=== PATIENT | female | born 1930 | race Caucasian/White ===

== ENCOUNTER 2016-10-22 04:07 | Emergency (ER) | payer MEDICARE ==
[~2016-10-22] VITALS: Ht 152.4 cm; Wt 53.8 kg
[~2016-10-22 04:07] MED LIST: CALC500T21 PO; IBUP400T20 PO; OMEG600C2 PO; VITA400C28 PO; VITA400C36
[2016-10-22 04:14] VITALS: BP 158/94; PULSE 77; RESP 18; TEMP 98.3; O2SAT 96
[2016-10-22] MEDS ORDERED: PRED50 PO ×2 (04:41→04:43)
[2016-10-22] MEDS ORDERED: FAMC500T PO ×2 (04:41→04:43)
[2016-10-22] MEDS ORDERED: PERC2.5T PO (04:41)
[2016-10-22] MEDS ORDERED: PERC5TAB12 PO (04:43)
[2016-10-22] MEDS ORDERED: predniSONE 20 MG TAB PO ONE (04:45)
[2016-10-22] MEDS ORDERED: oxyCODONE/ACETAMINOPHEN 5 MG/325 MG TAB PO ONE (04:45)
[2016-10-22] MEDS ORDERED: ACYCLOVIR 800 MG TAB PO ONE (04:45)
--- NOTE | 2016-10-22 04:52 | PD ---
HPI Chief Complaint: Skin Problem Time Seen by Provider: 04:26 Travel History International Travel<30 days: No Contact w/Intl Traveler<30days: No Traveled to known affect area: No History of Present Illness HPI The patient is an 86-year-old female that complains of 2 skin rashes. The one on the right side of her back is painful and follows the dermatome in the right mid thoracic region. The one on the left side comes on and off for years and is slightly pruritic. She has had the rash on her right side for 2 days. PFSH Past Medical History Arthritis: No Autoimmune Disease: No Blood Disorders: No Cancer: Yes (skin cancer removed) Cardiovascular Problems: No Chemotherapy: No Diabetes: No Diminished Hearing: No Endocrine: No Gastrointestinal Disorders: No Glaucoma: No Genitourinary: No Hepatitis: No Hiatal Hernia: No Hypertension: No Immune Disorder: No Musculoskeletal: Yes (ARTHROSCOPY SHOWED BONE TOUCHING BONE) Neurologic: No Psychiatric: No Reproductive: No Respiratory: No Radiation Therapy: No Sickle Cell Disease: No Thyroid Disease: No PNEUMOCCOCAL Vaccine (Year): 2005 ?: Not Menopausal: Yes Past Surgical History Abdominal Surgery: No AICD: No Arteriovenous Shunt: No Cardiac Surgery: No Ear Surgery: No Endocrine Surgery: No Eye Surgery: Yes (antonio cataract surgery) Genitourinary Surgery: No Gynecologic Surgery: No Insulin Pump: No Joint Replacement: Yes (PARTIAL R KNEE) Neurologic Surgery: No Oral Surgery: No Pacemaker: No Thoracic Surgery: No Other Surgery: Yes Social History Alcohol Use: Yes (glass of wine per nite) Tobacco Use: No (quit 12 years ago) Substance Use: No Allergies-Medications (Allergen,Severity, Reaction): Coded Allergies: No Known Allergies (Verified , 10/22/16) Reported Meds & Prescriptions Reported Meds & Active Scripts Active Prednisone 50 Mg Tab 50 Mg PO DAILY 5 Days Percocet (Oxycodone-Acetaminophen) 5-325 mg Tab 1 Tab PO Q4H PRN Famciclovir 500 Mg Tab 500 Mg PO TID 10 Days Percocet (Oxycodone-Acetaminophen) 2.5-325 mg Tab 1 Tab PO Q4H PRN Prednisone 50 Mg Tab 50 Mg PO DAILY 5 Days Famciclovir 500 Mg Tab 500 Mg PO TID 10 Days Review of Systems Except as stated in HPI: all other systems reviewed are Neg Physical Exam Narrative GENERAL: The patient is alert, oriented 3 in moderate apparent distress with her painful right skin rash. Her vital signs show blood pressure 158/94 but are otherwise normal. SKIN: Focused skin assessment warm/dry. There is a rash on the mid thoracic region on the right that follows a dermatome and is erythematous, papular and minimally confluent. The rash on the left side is erythematous, papular and non -confluent. HEAD: Atraumatic. Normocephalic. EYES: Pupils equal and round. No scleral icterus. No injection or drainage. ENT: No nasal bleeding or discharge. Mucous membranes pink and moist. NECK: Trachea midline. No JVD. CARDIOVASCULAR: Regular rate and rhythm. No murmur appreciated. RESPIRATORY: No accessory muscle use. Clear to auscultation. Breath sounds equal bilaterally. GASTROINTESTINAL: Abdomen soft, non-tender, nondistended. Hepatic and splenic margins not palpable. MUSCULOSKELETAL: No obvious deformities. No clubbing. No cyanosis. No edema. NEUROLOGICAL: Awake and alert. No obvious cranial nerve deficits. Motor grossly within normal limits. Normal speech. PSYCHIATRIC: Appropriate mood and affect; insight and judgment normal. Data Data Last Documented VS Vital Signs Date Time Temp Pulse Resp B/P Pulse Ox O2 Delivery O2 Flow Rate FiO2 10/22/16 04:14 98.3 77 18 158/94 96 Orders Acyclovir (Zovirax) (10/22/16 04:45) Prednisone (Deltasone) (10/22/16 04:45) Oxycodone-Acetamin 5-325 Mg (Percocet (10/22/16 04:45) MDM Medical Decision Making Medical Screen Exam Complete: Yes Emergency Medical Condition: Yes Medical Record Reviewed: Yes Differential Diagnosis Herpes zoster, allergic reaction, contact dermatitis, viral exanthem Narrative Course The patient has a herpes zoster rash on the right. The left rash, although appearing similar, is not painful and is pruritic and has been on and off for years. Diagnosis Primary Impression: Herpes zoster infection of thoracic region Additional Instructions: The prednisone is taken one tablet daily for 5 days. The Famvir is taken one tablet 3 times a day for 10 days. Do not drink alcohol or drive on the Percocet. This tablet is taken one every 4 hours as needed for pain. Drink plenty of liquids with the Percocet because it can be constipating. Scripts Prednisone 50 Mg Tab50 Mg PO DAILY 5 Days Ref 0 Prov:Fernando Murray MD 10/22/16 Oxycodone-Acetaminophen (Percocet)5-325 mg Tab1 Tab PO Q4H PRN (PAIN) #30 TAB Ref 0 Prov:Fernando Murray MD 10/22/16 Famciclovir 500 Mg [id number] Mg PO TID 10 Days Ref 0 Prov:Fernando Murray MD 10/22/16 Oxycodone-Acetaminophen (Percocet)2.5-325 mg Tab1 Tab PO Q4H PRN (pain) #30 TAB Ref 0 Prov:Fernando Murray MD 10/22/16 Prednisone 50 Mg Tab50 Mg PO DAILY 5 Days Ref 0 Prov:Fernando Murray MD 10/22/16 Famciclovir 500 Mg [id number] Mg PO TID 10 Days Ref 0 Prov:Fernando Murray MD 10/22/16 Disposition: 01 DISCHARGE HOME Condition: Stable Fernando Murray MD Oct 22, 2016 04:52
[2016-10-22 05:14] VITALS: BP 159/88
== END 2016-10-22 05:15 | disposition home or self-care (01) ==
LOC: PHED 04:07
DX: B02.9 Zoster without complications (principal)
CPT/HCPCS: 99283; J7512

== ENCOUNTER 2016-11-15 15:58 | Emergency (ER) | payer MEDICARE ==
[~2016-11-15] VITALS: Ht 160 cm; Wt 52.8 kg
[~2016-11-15 15:58] MED LIST changes: -CALC500T21 PO; +FAMC500T PO; -IBUP400T20 PO; -OMEG600C2 PO; +PERC5TAB12 PO; +PRED50 PO; -VITA400C28 PO; -VITA400C36
[2016-11-15 16:09] VITALS: BP 197/114; PULSE 87; RESP 16; TEMP 97.8; O2SAT 93
[2016-11-15 17:50] VITALS: BP 205/109; PULSE 78; RESP 16; O2SAT 96
--- NOTE | 2016-11-15 17:56 | PD ---
HPI Chief Complaint: Dizziness Time Seen by Provider: 17:50 Travel History International Travel<30 days: No Contact w/Intl Traveler<30days: No Traveled to known affect area: No History of Present Illness HPI PATIENT STATES OVER PAST DAY OR SO, SUDDEN ONSET , ROOM SPINNING, THAT HAS BEEN INTERMITTENT, UNSURE IF MOVING HEAD MAKES IT WORSE. DENIES ANY APONTE/CP/ABDPAIN/ FEVER PFSH Past Medical History Hx Anticoagulant Therapy: No Arthritis: No Autoimmune Disease: No Blood Disorders: No Cancer: Yes (skin cancer removed) Cardiovascular Problems: No Chemotherapy: No Diabetes: No Diminished Hearing: No Endocrine: No Gastrointestinal Disorders: No Glaucoma: No Genitourinary: No Hepatitis: No Hiatal Hernia: No Hypertension: No Immune Disorder: No Musculoskeletal: Yes (ARTHROSCOPY SHOWED BONE TOUCHING BONE) Neurologic: No Psychiatric: No Reproductive: No Respiratory: No Radiation Therapy: No Sickle Cell Disease: No Thyroid Disease: No PNEUMOCCOCAL Vaccine (Year): 2005 ?: Not Menopausal: Yes Past Surgical History Abdominal Surgery: No AICD: No Arteriovenous Shunt: No Cardiac Surgery: No Ear Surgery: No Endocrine Surgery: No Eye Surgery: Yes (antonio cataract surgery) Genitourinary Surgery: No Gynecologic Surgery: No Insulin Pump: No Joint Replacement: Yes (PARTIAL R KNEE) Neurologic Surgery: No Oral Surgery: No Pacemaker: No Thoracic Surgery: No Other Surgery: Yes Social History Alcohol Use: Yes (glass of wine per nite) Tobacco Use: No (quit 12 years ago) Substance Use: No Allergies-Medications (Allergen,Severity, Reaction): Coded Allergies: No Known Allergies (Verified , 10/22/16) Reported Meds & Prescriptions Reported Meds & Active Scripts Active Meclizine (Meclizine HCl) 25 Mg Tab 25 Mg PO TID PRN Reported Once Daily (Multivitamin) 1 Each Tablet 1 Tab PO DAILY [Unknown Eye Drop] 1 Drop EACH EYE BID Timolol Opth Drops 0.5 % Soln 1 Drop EACH EYE DAILY Review of Systems Except as stated in HPI: all other systems reviewed are Neg HENT: Positive: Vertigo Physical Exam Narrative GENERAL: SKIN: Warm and dry. HEAD: Atraumatic. Normocephalic. EYES: Pupils equal and round. No scleral icterus. No injection or drainage. HAS FATIGUABLE LATERAL NYSTAGMUS WITHOUT VERTICAL OR ROTARY COMPONENT...NO LATERALIZING WEAKNESS ENT: No nasal bleeding or discharge. Mucous membranes pink and moist. NECK: Trachea midline. No JVD. CARDIOVASCULAR: Regular rate and rhythm. RESPIRATORY: No accessory muscle use. Clear to auscultation. Breath sounds equal bilaterally. GASTROINTESTINAL: Abdomen soft, non-tender, nondistended. Hepatic and splenic margins not palpable. MUSCULOSKELETAL: Extremities without clubbing, cyanosis, or edema. No obvious deformities. NEUROLOGICAL: Awake and alert. No obvious cranial nerve deficits. Motor grossly within normal limits. Five out of 5 muscle strength in the arms and legs. Normal speech. PSYCHIATRIC: Appropriate mood and affect; insight and judgment normal. Data Data Last Documented VS Vital Signs Date Time Temp Pulse Resp B/P Pulse Ox O2 Delivery O2 Flow Rate FiO2 11/15/16 20:14 74 18 164/87 96 Room Air 11/15/16 16:09 97.8 Orders Clonidine (Catapres) (11/15/16 18:00) Ondansetron Odt (Zofran Odt) (11/15/16 18:00) Meclizine (Antivert) (11/15/16 18:00) Ct Brain W/O Iv Contrast(Rout) (11/15/16 ) Nifedipine Sr (Procardia Xl) (11/15/16 19:00) MDM Medical Decision Making Medical Screen Exam Complete: Yes Emergency Medical Condition: Yes Medical Record Reviewed: Yes Differential Diagnosis CENTRAL V PERIPHERAL VERTIGO V ICH Narrative Course UPON EVALUATION CT DID NOT SHOW ANY ICH OR SINUSITIS, AND CLINCALLY VERTIGO APPEARS TO BE PERIPHERAL, ADVISED F/U WITH ENT WHICH PATIENT STATED SHE ALREADY HAD ONE SO I ADVISED TO FOLLOW UP. Diagnosis Primary Impression: VERTIGO Patient Instructions: General Instructions, Vertigo (ED) Scripts Meclizine 25 Mg Tab25 Mg PO TID PRN (VERTIGO) #21 TAB Ref 0 Prov:Sreedhar Edmond MD 11/15/16 Disposition: 01 DISCHARGE HOME Condition: Stable Sreedhar Edmond MD Nov 15, 2016 17:56
[2016-11-15] MEDS ORDERED: UNKNOWN EYE DROP EACH EYE (17:57)
[2016-11-15] MEDS ORDERED: ONCETAB7 PO (17:57)
[2016-11-15] MEDS ORDERED: TIMO0.5S30 EACH EYE (17:57)
[2016-11-15] MEDS ORDERED: MECLIZINE HCL 25 MG TAB PO ONE (18:00)
[2016-11-15] MEDS ORDERED: ONDANSETRON ODT 4 MG TAB PO ONE (18:00)
[2016-11-15] MEDS ORDERED: cloNIDine HCL 0.2 MG TAB PO ONE (18:00)
[2016-11-15] MEDS ORDERED: MECL-62 PO (18:03)
--- NOTE | 2016-11-15 18:26 | RADRPT ---
EXAM DATE/TIME: 11/15/2016 17:54 [facility] COMPARISON: CT BRAIN W/O CONTRAST, August 02, 2014, 14:40. INDICATIONS : Dizziness. RADIATION DOSE: 57.62 CTDIvol (mGy) MEDICAL HISTORY : None SURGICAL HISTORY : None. ENCOUNTER: Initial ACUITY: 2 days PAIN SCALE: 0/10 LOCATION: cranial TECHNIQUE: Multiple contiguous axial images were obtained of the head. Using automated exposure control and adj ustment of the mA and/or kV according to patient size, radiation dose was kept as low as reasonably a chievable to obtain optimal diagnostic quality images. DICOM format image data is available electro nically for review and comparison. FINDINGS: There is marked central and cortical atrophy with dilatation of ventricular and sulcal spaces. There is no parenchymal hemorrhage, acute infarction or mass lesion identified. There are no extra-axial fluid collections appreciated. The posterior fossa is unremarkable with midline fourth ventricle. T he portion of the orbits and paranasal sinuses visualized are unremarkable. CONCLUSION: Atrophy, otherwise negative for acute process. Rob Dawkins MD FACR on November 15, 2016 at 18:24 Board Certified Radiologist. This report was verified electronically.
[2016-11-15] MEDS ORDERED: NIFEdipine 30 MG SUSTAINED RELEASE TAB PO ONE (19:00)
[2016-11-15 19:16] VITALS: BP 207/89
[2016-11-15 20:14] VITALS: BP 164/87; PULSE 74; RESP 18; O2SAT 96
== END 2016-11-15 20:44 | disposition home or self-care (01) ==
LOC: PHED 15:58
DX: R42 Dizziness and giddiness (principal)
CPT/HCPCS: 70450; 99284

== ENCOUNTER 2016-11-24 11:26 | Emergency (ER) | payer MEDICARE ==
[~2016-11-24] VITALS: Ht 154.9 cm; Wt 53.5 kg
[~2016-11-24 11:26] MED LIST changes: -FAMC500T PO; +MECL-62 PO; +ONCETAB7 PO; -PERC5TAB12 PO; -PRED50 PO; +TIMO0.5S30 EACH EYE; +UNKNOWN EYE DROP EACH EYE
[2016-11-24 11:56] VITALS: BP 218/111; PULSE 76; RESP 18; TEMP 97.7; O2SAT 97
[2016-11-24] MEDS ORDERED: ENALAPRILAT 2.5 MG/2 ML VIAL IV PUSH ONE ×2 (12:15→14:45)
[2016-11-24] MEDS ORDERED: SODIUM CHLORIDE 0.9% FLUSH 10 ML FLUSH IVF PRN (12:15)
[2016-11-24] MEDS ORDERED: MECLIZINE HCL 25 MG TAB PO ONE (12:15)
--- NOTE | 2016-11-24 12:38 | PD ---
HPI Chief Complaint: Hypertension Time Seen by Provider: 11:36 Travel History International Travel<30 days: No Contact w/Intl Traveler<30days: No Traveled to known affect area: No History of Present Illness HPI Patient is a 86-year-old female, poor historian, who presents the emergency department with complaint of high blood pressure and dizziness. Patient states that over the last 2 weeks she has been having episodes of dizziness. She describes this both as a sense of vertigo as though the world is spinning and a sense of lightheadedness. She has not had any chest pain, shortness of breath, palpitations. No tinnitus, change in hearing, ear pain or pressure. She was seen here in our emergency department on the , had a head CT that was negative, felt to be vertigo and given prescription for meclizine. She has been taking this periodically and states that it does help. She presents back to the ER today for repeat symptoms. Notably her blood pressure is elevated, patient denies a history of hypertension. Her blood pressure was elevated on her previous ED visit as well. PFSH Past Medical History Hx Anticoagulant Therapy: No Arthritis: No Autoimmune Disease: No Blood Disorders: No Cancer: Yes (skin cancer removed) Cardiovascular Problems: No Chemotherapy: No Diabetes: No Diminished Hearing: No Endocrine: No Gastrointestinal Disorders: No Glaucoma: No Genitourinary: No Hepatitis: No Hiatal Hernia: No Hypertension: No Immune Disorder: No Musculoskeletal: Yes (ARTHROSCOPY SHOWED BONE TOUCHING BONE) Neurologic: No Psychiatric: No Reproductive: No Respiratory: No Radiation Therapy: No Sickle Cell Disease: No Thyroid Disease: No Tetanus Vaccination: < 5 Years Influenza Vaccination: Yes PNEUMOCCOCAL Vaccine (Year): 2005 ?: Not Menopausal: Yes Past Surgical History Abdominal Surgery: No AICD: No Arteriovenous Shunt: No Cardiac Surgery: No Ear Surgery: No Endocrine Surgery: No Eye Surgery: Yes (antonio cataract surgery) Genitourinary Surgery: No Gynecologic Surgery: No Hysterectomy: Yes (UTERUS REMOVED) Insulin Pump: No Joint Replacement: Yes (PARTIAL R KNEE) Neurologic Surgery: No Oral Surgery: No Pacemaker: No Thoracic Surgery: No Other Surgery: Yes (BLADDER SLING) Social History Alcohol Use: Yes (glass of wine per nite) Tobacco Use: No (quit 39 years ago ) Substance Use: No Allergies-Medications (Allergen,Severity, Reaction): Coded Allergies: No Known Allergies (Verified , 10/22/16) Reported Meds & Prescriptions Reported Meds & Active Scripts Active Lisinopril 20 Mg Tab 20 Mg PO DAILY Review of Systems Except as stated in HPI: all other systems reviewed are Neg Physical Exam Narrative GENERAL: Well-appearing elderly female in no acute distress SKIN: Focused skin assessment warm/dry. HEAD: Atraumatic. Normocephalic. EYES: Pupils equal and round. No scleral icterus. No injection or drainage. Extraocular movements intact without nystagmus ENT: No nasal bleeding or discharge. Mucous membranes pink and moist. Cerumen impaction bilaterally NECK: Supple without bruit CARDIOVASCULAR: Regular rate and rhythm. No murmur appreciated. RESPIRATORY: No accessory muscle use. Clear to auscultation. Breath sounds equal bilaterally. GASTROINTESTINAL: Abdomen soft, non-tender, nondistended. MUSCULOSKELETAL: No obvious deformities. No edema. NEUROLOGICAL: Awake and alert. No obvious cranial nerve deficits. Motor grossly within normal limits. Normal speech. PSYCHIATRIC: Appropriate mood and affect; insight and judgment normal. Data Data Last Documented VS Vital Signs Date Time Temp Pulse Resp B/P Pulse Ox O2 Delivery O2 Flow Rate FiO2 11/24/16 15:04 192/89 11/24/16 14:00 20 11/24/16 12:54 98 11/24/16 11:56 97.7 76 Orders Electrocardiogram (11/24/16 12:05) Prothrombin Time / Inr (Pt) (11/24/16 12:05) Act Partial Throm Time (Ptt) (11/24/16 12:05) Complete Blood Count With Diff (11/24/16 12:05) Basic Metabolic Panel (Bmp) (11/24/16 12:05) Urinalysis - C+S If Indicated (11/24/16 12:05) Ecg Monitoring (11/24/16 12:05) Iv Access Insert/Monitor (11/24/16 12:05) Oximetry (11/24/16 12:05) Sodium Chloride 0.9% Flush (Ns Flush) (11/24/16 12:15) Meclizine (Antivert) (11/24/16 12:15) Ear Irrigation (11/24/16 12:05) Mri Brain W/O Contrast (11/24/16 ) Mra Brain W/O Contrast (Cow) (11/24/16 ) Enalaprilat Inj (Vasotec Inj) (11/24/16 12:15) Enalaprilat Inj (Vasotec Inj) (11/24/16 14:45) Labs Laboratory Tests Test 11/24/16 11/24/16 12:44 13:20 White Blood Count 6.4 TH/MM3 Red Blood Count 5.01 MIL/MM3 Hemoglobin 13.9 GM/DL Hematocrit 42.0 % Mean Corpuscular Volume 83.8 FL Mean Corpuscular Hemoglobin 27.7 PG Mean Corpuscular Hemoglobin 33.0 % Concent Red Cell Distribution Width 13.5 % Platelet Count 227 TH/MM3 Mean Platelet Volume 7.1 FL Neutrophils (%) (Auto) 59.2 % Lymphocytes (%) (Auto) 26.4 % Monocytes (%) (Auto) 7.4 % Eosinophils (%) (Auto) 6.3 % Basophils (%) (Auto) 0.7 % Neutrophils # (Auto) 3.8 TH/MM3 Lymphocytes # (Auto) 1.7 TH/MM3 Monocytes # (Auto) 0.5 TH/MM3 Eosinophils # (Auto) 0.4 TH/MM3 Basophils # (Auto) 0.0 TH/MM3 CBC Comment DIFF FINAL Differential Comment Prothrombin Time 10.6 SEC Prothromb Time International 1.0 RATIO Ratio Activated Partial 25.5 SEC Thromboplast Time Sodium Level 136 MEQ/L Potassium Level 4.0 MEQ/L Chloride Level 102 MEQ/L Carbon Dioxide Level 28.8 MEQ/L Anion Gap 5 MEQ/L Blood Urea Nitrogen 12 MG/DL Creatinine 0.67 MG/DL Estimat Glomerular Filtration 83 ML/MIN Rate Random Glucose 98 MG/DL Calcium Level 8.2 MG/DL Urine Color STRAW Urine Turbidity CLEAR Urine pH 6.5 Urine Specific [place] 1.007 Urine Protein NEG mg/dL Urine Glucose (UA) NEG mg/dL Urine Ketones NEG mg/dL Urine Occult Blood NEG Urine Nitrite NEG Urine Bilirubin NEG Urine Leukocyte Esterase TRACE Urine Squamous Epithelial 0-2 /hpf Cells Urine Transitional Epithelial 0-5 /hpf Cells Microscopic Urinalysis Comment CULT NOT INDICATED MDM Medical Decision Making Medical Screen Exam Complete: Yes Emergency Medical Condition: Yes Medical Record Reviewed: Yes Differential Diagnosis 86-year-old female here with complaint of intermittent lightheadedness/vertigo for the last 2 weeks, associated high blood pressure. Differential includes arrhythmia, electrolyte abnormality, symptomatic anemia, posterior fossa CVA ischemic versus hemorrhagic, posterior fossa mass lesion, vertebrobasilar insufficiency, BPPV, Mnire's, labyrinthitis, accelerated hypertension, hypertensive emergency Narrative Course Patient placed on monitor, IV established and blood obtained. A twelve-lead EKG shows sinus rhythm with sinus arrhythmia but no notable ST or T-wave abnormalities and normal intervals. Patient was given meclizine, IV enalapril with improvement of her symptoms and blood pressure. CBC, BMP, coags unremarkable. Her ears were irrigated needed to remove cerumen impaction, please see procedure note. MRI/MRA of the brain showed small vessel ischemic disease. Procedures Procedure Narrative Water irrigation performed to the bilateral ears to remove cerumen impaction, patient tolerated procedure well. Diagnosis Primary Impression: Peripheral vertigo Qualified Code: H81.399 - Peripheral vertigo, unspecified laterality Additional Impression: Accelerated hypertension Referrals: Primary Care Physician call for appointment Additional Instructions: Continue meclizine as previously prescribed for vertigo, dizziness. Lisinopril as prescribed for blood pressure. You can get this medication free at [facility]. Follow-up with primary care provider for blood pressure recheck and further management. Med/Other Pt SpecificInfo: Prescription(s) given Scripts Lisinopril 20 Mg Tab20 Mg PO DAILY #30 TAB Ref 0 Prov:Caron Haq MD 11/24/16 Disposition: 01 DISCHARGE HOME Condition: Stable Caron Haq MD Nov 24, 2016 12:38 Caron Haq MD Nov 24, 2016 12:38
[2016-11-24 12:52] LABS: AUTOMATED NEUTROPHIL # 3.8 TH/MM3 (1.8-7.7); BASOPHIL % 0.7 % (0.0-2.0); EOSINOPHIL # 0.4 TH/MM3 (0-0.4); EOSINOPHIL % 6.3 % (0.0-4.0); HEMO FLAGS DIFF FINAL; LYMPH % 26.4 % (9.0-44.0); LYMPHOCYTE # 1.7 TH/MM3 (1.0-4.8); MEAN CELL VOLUME 83.8 FL (80.0-100.0); MEAN CORPUSCULAR HEMOGLOBIN 27.7 PG (27.0-34.0); MONO % 7.4 % (0.0-8.0); NEUT % 59.2 % (16.0-70.0); PLATELET COUNT 227 TH/MM3 (150-450); RED BLOOD COUNT 5.01 MIL/MM3 (4.00-5.30); RED CELL DISTRIBUTION WIDTH 13.5 % (11.6-17.2); WHITE BLOOD COUNT 6.4 TH/MM3 (4.0-11.0)
[2016-11-24 12:54] VITALS: O2SAT 98
[2016-11-24 13:08] LABS: BICARBONATE 28.8 MEQ/L (21.0-32.0)
[2016-11-24 13:09] LABS: APTT (PATIENT) 25.5 SEC (24.3-30.1); PROTHROMBIN TIME - PATIENT 10.6 SEC (9.8-11.6)
[2016-11-24 13:30] VITALS: BP 214/98
[2016-11-24 13:32] LABS: BLOOD, URINE NEG (NEG); GLUCOSE,URINE NEG (NEG); KETONE, URINE NEG (NEG); NITRITE,URINE NEG (NEG); PH, URINE 6.5 (5.0-8.5)
[2016-11-24 13:44] LABS: COMMENT (UR) CULT NOT INDICATED; CULTURE IF INDICATED CULT NOT INDICATED; SQUAMOUS EPITHELIAL CELL URINE 0-2 /hpf (0-5); TRANSITIONAL EPI CELLS, URINE 0-5 /hpf; URINE COLOR STRAW (YELLW/STRAW)
[2016-11-24 14:08] VITALS: BP 186/107
[2016-11-24 15:04] VITALS: BP 192/89
--- NOTE | 2016-11-24 15:10 | RADRPT ---
EXAM DATE/TIME: 11/24/2016 14:22 [facility] COMPARISON: CT BRAIN W/O CONTRAST, November 15, 2016, 17:54. INDICATIONS : Vertigo. MEDICAL HISTORY : Hypertension. SURGICAL HISTORY : Hysterectomy. ENCOUNTER: Initial ACUITY: 1 week PAIN SCORE: 0/10 LOCATION: cranial TECHNIQUE: Multiplanar, multisequence MRI of the brain was performed without contrast. FINDINGS: CEREBRUM: The ventricles are normal for age. There is cerebral atrophy. No evidence of midline shift, mass lesi on, hemorrhage or acute infarction. No extraaxial fluid collections are seen. The pituitary gland a nd suprasellar cistern are normal in configuration. WHITE MATTER: Prominent areas of high flair signal abnormalities are seen in the periventricular white matter with similar changes in the brainstem. POSTERIOR FOSSA: The cerebellum is intact. The 4th ventricle is midline. The cerebellopontine angle is unremarkable. The cerebellar tonsils are normal in position. DIFFUSION IMAGING: No focal areas of restricted diffusion are seen. No evidence of acute infarction. EXTRACRANIAL: The visualized portions of the orbits and paranasal sinuses are unremarkable. CONCLUSION: 1. 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 2. No acute infarction. Gera Azar MD on November 24, 2016 at 15:05 Board Certified Radiologist. This report was verified electronically.
[2016-11-24] MEDS ORDERED: LISI-515 PO (15:19)
--- NOTE | 2016-11-24 15:21 | RADRPT ---
EXAM DATE/TIME: 11/24/2016 14:22 [facility] COMPARISON: No previous studies available for comparison. INDICATIONS : Vertigo. MEDICAL HISTORY : Hypertension. SURGICAL HISTORY : Hysterectomy. ENCOUNTER: Initial ACUITY: 1 week PAIN SCORE: 0/10 LOCATION: cranial Please note a normal MRA of the brain does not entirely exclude the possibility of a small aneurysm, nor the possibility of distal intracranial vessel disease. TECHNIQUE: 3D time of flight MRA was performed. Source images, multiplanar STS MIP, and 3D volume MIP reconstru ctions were reviewed. FINDINGS: There is excellent visualization of the major intracranial arteries out to the second-order branch ve ssels. There is no evidence for aneurysm, vessel truncation or stenosis, and no evidence for vascula r malformation. Scattered intraluminal irregularities in the distal branches of the posterior cerebra l arteries, middle cerebral arteries and superior cerebellar arteries. No large vessel stenosis. Ante rior communicating artery not seen. Persistent circulation left posterior cerebral artery. Righ t-sided posterior communicating artery. CONCLUSION: 1. No large vessel stenosis or aneurysm. 2. Atherosclerotic changes. 3. Normal variants as described above. Gera Azar MD on November 24, 2016 at 15:09 Board Certified Radiologist. This report was verified electronically.
[2016-11-24 15:42] VITALS: BP 170/90
--- NOTE | 2016-11-25 12:03 | EKG ---
Date Performed: 11/24/2016 Time Performed: 12:19:39 PTAGE: 86 years EKG: Sinus rhythm WITH SINUS ARRHYTHMIA BORDERLINE LEFT AXIS DEVIATION Since previous tracing, no significant change n oted BORDERLINE ECG PREVIOUS TRACING : 09/17/2009 11.18 DOCTOR: Clifford Caballero Interpretating Date/Time 11/25/2016 12:03:06
== END 2016-11-24 15:45 | disposition home or self-care (01) ==
LOC: PHED 11:26
DX: H81.399 Other peripheral vertigo, unspecified ear (principal); I10 Essential (primary) hypertension; I49.8 Other specified cardiac arrhythmias; Z87.891 Personal history of nicotine dependence
CPT/HCPCS: 70544; 70551; 80048; 81001; 85025; 85610; 85730; 93005; 96374; 96376

== ENCOUNTER 2017-03-29 02:51 | Emergency (ER) | payer MEDICARE ==
[~2017-03-29] VITALS: Ht 152.4 cm; Wt 53.8 kg
[2017-03-29] VITALS (8 sets, daily range): BP systolic 135–200; BP diastolic 81–93; PULSE 65–99; RESP 14–18; TEMP 97.6; O2SAT 94–99
[~2017-03-29 02:51] MED LIST changes: +LISI-515 PO; -MECL-62 PO; -ONCETAB7 PO; -TIMO0.5S30 EACH EYE; -UNKNOWN EYE DROP EACH EYE
--- NOTE | 2017-03-29 03:21 | PD ---
HPI Chief Complaint: Skin Problem Time Seen by Provider: 03:14 Travel History International Travel<30 days: No Contact w/Intl Traveler<30days: No Traveled to known affect area: No History of Present Illness HPI The patient is an 86-year-old female that complains of a skin rash on her arms and around her neck and upper trunk for 5 days. She has not started any new medications and never had this rash before. She denies any shortness of breath or wheezing. She has no known allergies. She denies any fever, cough, chest pain, shortness of breath, nausea, vomiting or diarrhea. She denies any history of heart disease. PFSH Past Medical History Hx Anticoagulant Therapy: No Arthritis: No Autoimmune Disease: No Blood Disorders: No Cancer: Yes (skin cancer removed) Cardiovascular Problems: No Chemotherapy: No Diabetes: No Diminished Hearing: No Endocrine: No Gastrointestinal Disorders: No Glaucoma: No Genitourinary: No Hepatitis: No Hiatal Hernia: No Hypertension: No Immune Disorder: No Musculoskeletal: Yes (ARTHROSCOPY SHOWED BONE TOUCHING BONE) Neurologic: No Psychiatric: No Reproductive: No Respiratory: No Radiation Therapy: No Sickle Cell Disease: No Thyroid Disease: No PNEUMOCCOCAL Vaccine (Year): 2005 Menopausal: Yes Past Surgical History Abdominal Surgery: No AICD: No Arteriovenous Shunt: No Cardiac Surgery: No Ear Surgery: No Endocrine Surgery: No Eye Surgery: Yes (antonio cataract surgery) Genitourinary Surgery: No Gynecologic Surgery: No Hysterectomy: Yes (UTERUS REMOVED) Insulin Pump: No Joint Replacement: Yes (PARTIAL R KNEE) Neurologic Surgery: No Oral Surgery: No Pacemaker: No Thoracic Surgery: No Other Surgery: Yes (BLADDER SLING) Social History Alcohol Use: Yes (glass of wine per nite) Tobacco Use: No (quit 39 years ago ) Substance Use: No Allergies-Medications (Allergen,Severity, Reaction): Coded Allergies: No Known Allergies (Verified , 10/22/16) Reported Meds & Prescriptions Reported Meds & Active Scripts Active Lisinopril 20 Mg Tab 20 Mg PO DAILY Review of Systems Except as stated in HPI: all other systems reviewed are Neg Physical Exam Narrative GENERAL: Well-nourished, well-developed patient in slight apparent distress with her pruritic skin rash area her vital signs show blood pressure 200/93 but are otherwise normal. SKIN: Focused skin assessment warm/dry. There is an erythematous and slightly papular skin rash covering her arms, upper trunk and most heavily around the neck. The legs and lower back are mostly spared. HEAD: Normocephalic. EYES: No scleral icterus. No injection or drainage. NECK: Supple, trachea midline. No JVD or lymphadenopathy. CARDIOVASCULAR: Regular rate and rhythm without murmurs, gallops, or rubs. RESPIRATORY: Breath sounds equal bilaterally. No accessory muscle use. Lungs clear to auscultation bilaterally. GASTROINTESTINAL: Abdomen soft, non-tender, nondistended. MUSCULOSKELETAL: No cyanosis, or edema. BACK: Nontender without obvious deformity. No CVA tenderness. Data Data Last Documented VS Vital Signs Date Time Temp Pulse Resp B/P (MAP) Pulse Ox O2 Delivery O2 Flow Rate FiO2 03/29/17 03:39 108 193/89 03/29/17 02:57 97.6 16 99 Orders Orders Ecg Monitoring (03/29/17 03:22) Iv Access Insert/Monitor (03/29/17 03:22) Oximetry (03/29/17 03:22) Diphenhydramine Inj (Benadryl Inj) (03/29/17 03:30) Methylprednisolone So Succ Inj (Solumedr (03/29/17 03:30) Sodium Chlor 0.9% 1000 Ml Inj (Ns 1000 M (03/29/17 03:22) Sodium Chloride 0.9% Flush (Ns Flush) (03/29/17 03:30) Epinephrine (1:1000) Inj (Adrenalin (1:1 (03/29/17 03:30) MDM Medical Decision Making Medical Screen Exam Complete: Yes Emergency Medical Condition: Yes Medical Record Reviewed: Yes Differential Diagnosis Allergic rash, eczema, viral rash Narrative Course It is now 0350 and the patient's rash has decreased dramatically. Impression: Allergic rash Plan: The patient be given Zantac, Benadryl and a tapered course of prednisone. She is to follow-up with her primary care physician next week. Diagnosis Primary Impression: Rash due to allergy Additional Instructions: The prednisone is taken one tablet twice daily for 4 days followed by one tablet once daily for 4 days. The Zantac is taken one tablet twice daily and the Benadryl is taken one tablet twice daily. Follow-up next week with your primary care physician. Med/Other Pt SpecificInfo: Prescription(s) given Scripts Prednisone (Prednisone) 50 Mg Tab 50 MG PO BID for X 4 days than daily X 4 days, #12 TAB 0 Refills Prov: Fernando Murray MD 03/29/17 Diphenhydramine (Diphenhydramine) 25 Mg Cap 25 MG PO Q12H Y for ALLERGIES, #60 CAP 0 Refills Prov: Fernando Murray MD 03/29/17 Ranitidine (Zantac) 150 Mg Tab 150 MG PO BID for Reduce Stomach Acid, #60 TAB 0 Refills Prov: Fernando Murray MD 03/29/17 Disposition: 01 DISCHARGE HOME Condition: Stable Fernando Murray MD Mar 29, 2017 03:21
[2017-03-29] MEDS ORDERED: SODIUM CHLOR 0.9% 1000 ML INJ 1,000 ML IV SCH (03:22)
[2017-03-29] MEDS ORDERED: EPINEPHrine HCL (1:1000) 1 MG/ML VIAL IM ONE (03:30)
[2017-03-29] MEDS ORDERED: methylPREDNISolone SOD SUCC 125 MG/2 ML VIAL IM ONE (03:30)
[2017-03-29] MEDS ORDERED: SODIUM CHLORIDE 0.9% FLUSH 10 ML FLUSH IV FLUSH PRN ×2 (03:30→04:00)
[2017-03-29] MEDS ORDERED: diphenhydrAMINE HCL 50 MG/ML VIAL IVP ONE (03:30)
[2017-03-29] MEDS ORDERED: ZANT150T2 PO (03:54)
[2017-03-29] MEDS ORDERED: DIPH25CA PO (03:54)
[2017-03-29] MEDS ORDERED: PRED50 PO (03:54)
[2017-03-29] MEDS ORDERED: FAMOTIDINE 20 MG/2 ML VIAL IV PUSH ONE (04:00)
== END 2017-03-29 05:10 | disposition home or self-care (01) ==
LOC: PHED 02:51
DX: T78.40XA Allergy, unspecified, initial encounter (principal)
CPT/HCPCS: 96361; 96372; 96374; 96375; 99284; J0171; J1200; J2930; J7030

== ENCOUNTER 2017-11-22 17:20 | Observation (INO) ==
--- NOTE | 2017-11-22 18:40 | ED ---
HPI General Chief complaint: Dizziness Stated complaint: DIZZY/HIGH BP Time Seen by Provider: 11/22/17 18:26 Source: patient Mode of arrival: ambulatory Limitations: no limitations History of Present Illness HPI narrative: 87yo F with PMH of macular degeneration, HTN presents to the ED with c/o feeling lightheaded and mildly nauseous about 1-2 hours ago. Said she check her blood pressure and it was 180s/90s and she got scare. Said she takes her blood pressure medication daily but does not know what it was but took it. Said she has mild headaches all the time and right now is not really having headache and does not want any pain medication. Denies any fever, chest pain, sob, vomiting, abdominal pain, focal weakness or numbness. Pt does feel like she has increased urinary frequency. Related Data Home Medications Medication Instructions Recorded Confirmed Unable to Obtain Home Meds 11/22/17 11/22/17 Allergies Allergy/AdvReac Type Severity Reaction Status Date / Time No Known Allergies Allergy Verified 11/22/17 17:27 Review of Systems ROS Unobtainable All other systems reviewed negative except as stated in HPI [facility] Medical History Medical History Hypertension (Acute) Surgical History Surgical History No history of previous surgery (Acute) Social History Social History Substance History: No History of Abuse Second Hand Smoke Exposure: No Smoking Status: Former smoker Tobacco Type: Cigarettes How Often Do You Have a Drink Containing Alcohol: 4 or more times a week Recent Travel in [facility] within the Last 8 Weeks: No Recent Out of Country Travel within the Last 8 Weeks: No Immunization History Tetanus Immunization: Unsure Hx Influenza Vaccine This Season: Yes Exam Narrative Exam Narrative: GENERAL: 87yo F not in distress. SKIN: Focused skin assessment warm/dry. HEAD: Atraumatic. Normocephalic. EYES: Pupils equal and round at 3mm bilaterally. EOMI. ENT: No nasal bleeding or discharge. Mucous membranes pink and moist. NECK: Trachea midline. No JVD. CARDIOVASCULAR: Regular rate and rhythm. No murmur appreciated. RESPIRATORY: No accessory muscle use. Clear to auscultation. Breath sounds equal bilaterally. GASTROINTESTINAL: Abdomen soft, non-tender, nondistended. MUSCULOSKELETAL: No obvious deformities. No clubbing. No cyanosis. No edema. NEUROLOGICAL: Awake and alert. No obvious cranial nerve deficits. Motor grossly within normal limits in all extremities. Sensation intact. Normal speech. PSYCHIATRIC: Appropriate mood and affect; insight and judgment normal. Course Initial Documented Vital Signs Temperature 97.7 F 11/22/17 17:27 Pulse Rate 68 11/22/17 17:27 Respiratory Rate 16 11/22/17 17:27 Blood Pressure 195/100 H 18 17:27 Pulse Oximetry 96 11/22/17 17:27 Last Documented Vital Signs Temperature 97.7 F 11/22/17 17:27 Pulse Rate 64 11/22/17 19:14 Respiratory Rate 18 11/22/17 19:14 Blood Pressure 165/87 H 11/22/17 19:14 Pulse Oximetry 97 11/22/17 19:14 Sign Out Sign Out Data: Patient Sign Out occurred on 11/22/17 at 19:19. Patient's care was discussed, and care was transferred from Diane Francois DO to Ila Simpson. Sign Out Comment: Sign out to next team to follow up labs and reevaluate Last updated by Diane Francois DO at 11/22/17 19:08 Post-Handoff Eval: much better at this timePatient signed out to me by Dr. Francois at change of shift. Patient pending lab work and re-evaluation Patient is an 87-year-old female who presents to the emergency room with complaints of lightheadedness and high blood pressure. Patient reports that she was feeling lightheaded and dizzy earlier today and took her blood pressure and it was higher than normal. Reports that she became scared and came to the ER for evaluation. Patient denies any chest pain or shortness of breath, patient reports near resolution of her lightheadedness at this time. Denies any vision changes. Patient with no fever or chills, no nausea or vomiting. Patient requesting to be discharged to home as she is feeling much better at this time. CBC: wnl BMP: Sodium 135, potassium 3.8, magnesium 1.9, creatinine 0.91 Troponin UA positive for moderate white blood cell clumps, innumerable white blood cells , positive nitrites, 15 ketones - patient was given a dose of antibiotics for treatment of uti - uc sent EKG is concerning as she does have new st seg depressions which is a change from previous ekg's (11/23/16). First set of troponins is negative Discussed with patient need for admission to the hospital due to her abnormal EKG. Ischemic EKG could be secondary to hypertensive urgency and his blood pressure was "REALLY HIGH" prior to coming to the ER. Initial bp here was 195/ 100, she has not received any antihypertensive medications, her bp now 165/87 Patient is agreeable to admission. Case reviewed with Dr. Leal who accepts pt to service Medical Decision Making MDM Narrative Medical decision making narrative: 87yo F with HTN here with dizziness and nausea that just started. Also with increased urinary frequency. UA showed positive nitrite. Pt given ceftriaxone. EKG was obtained for dizziness and showed significant ST depression that are new. Even though pt is not having any chest pain or sob, will obtain troponin base on EKG changes. Sign out to next team to follow up and reevaluate. Differential Diagnosis Differential Diagnosis: UTI vs. dehydration vs. electrolyte abnormality vs. ACS Lab Data Lab results reviewed: Yes I reviewed the patient's lab results. Result diagrams: 11/22/17 19:00 11/22/17 19:00 Lab Results 11/22/17 11/22/17 11/22/17 Range/Units 18:45 19:00 19:00 CBC w Diff Auto diff final WBC 7.5 (4.0-11.0) th/mm3 RBC 4.69 (4.00-5.30) mil/mm3 Hgb 13.7 (11.6-15.3) gm/dL Hct 41.2 (35.0-46.0) % MCV 87.9 (80.0-100.0) fL MCH 29.2 (27.0-34.0) pg MCHC 33.2 (32.0-36.0) % RDW 13.3 (11.6-17.2) % Plt Count 185 (150-450) th/mm3 MPV 7.5 (7.0-11.0) fL Neut % (Auto) 69.1 (16.0-70.0) % Lymph % (Auto) 21.6 (9.0-44.0) % [place] % (Auto) 7.2 (0.0-8.0) % Eos % (Auto) 1.6 (0.0-4.0) % Baso % (Auto) 0.5 (0.0-2.0) % Neut # (Auto) 5.3 (1.8-7.7) th/mm3 Lymph # (Auto) 1.6 (1.0-4.8) th/mm3 [place] # (Auto) 0.5 (0.0-0.9) th/mm3 Eos # (Auto) 0.1 (0.0-0.4) th/mm3 Baso # (Auto) 0.0 (0.0-0.2) th/mm3 WBC Differential . Differential Comment . Sodium 135 L (136-145) meq/L Potassium 3.8 (3.5-5.1) meq/L Chloride 100 (98-107) meq/L Carbon Dioxide 28.8 (21.0-32.0) meq/L Anion Gap 6 (5-15) meq/L BUN 20 H (7-18) mg/dL Creatinine 0.91 (0.50-1.00) mg/dL Estimated GFR 58 L (>89) mL/min Random Glucose 115 H (74-106) mg/dL Calcium 9.0 (8.5-10.1) mg/dL Magnesium 1.9 (1.5-2.5) mg/dL Troponin I Less than 0.02 L (0.02-0.05) ng/mL Urine Color Yellow (Yellw/Straw) Urine Clarity Cloudy H (Clear) Urine pH 5.5 (5.0-8.5) Ur Specific [place] 1.020 (1.002-1.035) Urine Protein Negative (Neg-Trace) mg/dL Urine Glucose (UA) Negative (Negative) mg/dL Urine Ketones 15 H (Negative) mg/dL Urine Occult Blood Small H (Negative) Urine Nitrate Positive H (Negative) Urine Bilirubin Negative (Negative) Urine Urobilinogen 0.2 (Less than 2) mg/dL Ur Leukocyte Esterase Small H (Negative) Urine RBC 4-15 H (0-3) /hpf Urine WBC Innumerable H (0-5) /hpf Urine WBC Clumps Moderate H (None) Ur Squamous Epith Cells Greater than 10 H (0-5) /hpf Ur Renal Epithelial Cell 1-5 H (None) /hpf Amorphous Sediment Few H (None) /hpf Urine Bacteria Many H (None) /hpf Urine Mucus Few H (Occasional) /lpf Micro UA Comment Culture indicated Imaging Data Attestation: I personally reviewed and interpreted this imaging study as follows : ECG Data EKG Prior to Arrival: No Attestation: I personally reviewed and interpreted this ECG as follows: Interpretation: NSR 65bpm. Normal axis. ST depression in III, aVF, V5, V6 are new compare to 11/2016. Discharge Plan Discharge Disposition Patient Disposition: 30 Still Patient Discharge Condition Condition: Fair Physicians Team ED Provider: Ila Simpson Primary Care Provider: Eric Caba Rxs /Orders / Referrals /Forms Prescriptions: No Action Unable to Obtain Home Meds RF: 0 Status ED Status: With Doctor
[2017-11-22 18:49] LABS: Bilirubin,Urine Negative (Negative); Clarity,Urine Cloudy (Clear); Color,Urine Yellow (Yellw/Straw); Glucose,Urine (UA) Negative (Negative); Leukocyte Esterase,Urine Small (Negative); Nitrite,Urine Positive (Negative); PH,Urine 5.5 (5.0-8.5); Urobilinogen,Urine 0.2 mg/dL (Less than 2)
[2017-11-22 18:55] LABS: WBC,Urine Innumerable /hpf (0-5)
[2017-11-22 18:56] LABS: Amorphous Sediment,Urine Few /hpf; Bacteria,Urine Many /hpf; Mucus,Urine Few /lpf (Occasional); Squamous Epithelial Cell,Urine Greater than 10 /hpf (0-5)
[2017-11-22 19:13] LABS: Baso % (Auto) 0.5 % (0.0-2.0); Eos # (Auto) 0.1 th/mm3 (0.0-0.4); Eos % (Auto) 1.6 % (0.0-4.0); Hematocrit 41.2 % (35.0-46.0); Hemoglobin 13.7 gm/dL (11.6-15.3); Lymph # (Auto) 1.6 th/mm3 (1.0-4.8); Lymph % (Auto) 21.6 % (9.0-44.0); Mean Corpuscular HGB Conc 33.2 % (32.0-36.0); Mean Corpuscular Hemoglobin 29.2 pg (27.0-34.0); Mean Corpuscular Volume 87.9 fL (80.0-100.0); Mean Platelet Volume 7.5 fL (7.0-11.0); Mono # (Auto) 0.5 th/mm3 (0.0-0.9); Mono % (Auto) 7.2 % (0.0-8.0); Neut # (Auto) 5.3 th/mm3 (1.8-7.7); Neut % (Auto) 69.1 % (16.0-70.0); Platelet Count 185 th/mm3 (150-450); Red Blood Count 4.69 mil/mm3 (4.00-5.30); Red Cell Distribution Width 13.3 % (11.6-17.2); White Blood Count 7.5 th/mm3 (4.0-11.0)
[2017-11-22 19:21] LABS: Chloride 100 meq/L (98-107); Potassium 3.8 meq/L (3.5-5.1); Sodium 135 meq/L (136-145)
[2017-11-22 19:25] LABS: Anion Gap 6 meq/L (5-15); Blood Urea Nitrogen 20 mg/dL (7-18); Carbon Dioxide 28.8 meq/L (21.0-32.0); Glucose,Random 115 mg/dL (74-106); Magnesium 1.9 mg/dL (1.5-2.5)
[2017-11-22 19:28] LABS: Glomerular Filtration Rate 58 mL/min (>89)
[2017-11-22] MEDS ORDERED: Bisacodyl 10 MG Supp RECTAL PRN (20:01)
[2017-11-22] MEDS ORDERED: Temazepam 15 MG Capsule PO PRN (20:01)
[2017-11-22] MEDS: Sod Chloride 0.9% Inj 1,000 ML IV.CONT SCH (20:50)
[2017-11-22] MEDS: Senna/Docusate Sodium 8.6/50 MG Tablet PO SCH (21:13)
[2017-11-23 05:04] LABS: Baso % (Auto) 0.5 % (0.0-2.0); Eos # (Auto) 0.1 th/mm3 (0.0-0.4); Eos % (Auto) 2.1 % (0.0-4.0); Hematocrit 39.3 % (35.0-46.0); Hemoglobin 13.3 gm/dL (11.6-15.3); Lymph # (Auto) 1.2 th/mm3 (1.0-4.8); Mean Corpuscular HGB Conc 33.8 % (32.0-36.0); Mean Corpuscular Hemoglobin 29.5 pg (27.0-34.0); Mean Corpuscular Volume 87.2 fL (80.0-100.0); Mean Platelet Volume 7.4 fL (7.0-11.0); Mono # (Auto) 0.5 th/mm3 (0.0-0.9); Mono % (Auto) 8.7 % (0.0-8.0); Neut # (Auto) 3.5 th/mm3 (1.8-7.7); Neut % (Auto) 65.7 % (16.0-70.0); Platelet Count 163 th/mm3 (150-450); Red Blood Count 4.51 mil/mm3 (4.00-5.30); Red Cell Distribution Width 13.2 % (11.6-17.2); White Blood Count 5.4 th/mm3 (4.0-11.0)
[2017-11-23 05:10] LABS: Chloride 103 meq/L (98-107); Potassium 4.1 meq/L (3.5-5.1); Sodium 137 meq/L (136-145)
[2017-11-23 06:08] LABS: Alanine Aminotransferase 18 U/L (10-53); Albumin 3.1 g/dL (3.4-5.0); Alkaline Phosphatase 41 U/L (45-117); Anion Gap 5 meq/L (5-15); Aspartate Aminotransferase 20 U/L (15-37); Blood Urea Nitrogen 17 mg/dL (7-18); Glomerular Filtration Rate 86 mL/min (>89); Glucose,Random 98 mg/dL (74-106); Total Protein 6.4 g/dL (6.4-8.2)
--- NOTE | 2017-11-23 10:23 | ECG ---
Date Performed: 11/22/2017 Time Performed: 18:46:38 PTAGE: 87 years EKG: Sinus rhythm POSSIBLE LEFT ATRIAL ENLARGEMENT NONSPECIFIC ST & T-WAVE ABNORMALITY BORDERLINE ECG PREVIOUS TRACING : 11/24/2016 12.19 Since the previous tracing, no significant change noted DOCTOR: Elsa Irizarry Interpretating Date/Time 11/23/2017 10:22:05
[2017-11-23] MEDS: Senna/Docusate Sodium 8.6/50 MG Tablet PO SCH ×2 (10:30→20:25)
[2017-11-23] MEDS ORDERED: Lisinopril 10 MG Tablet PO SCH (11:45)
--- NOTE | 2017-11-23 17:10 | P.HP ---
History of Present Illness Primary Care Physician: Eric Caba MD History of Present Illness: This is an 87-year-old female in good health for her age who has a past medical history of hypertension. On routine home blood pressure check yesterday evening her machine registered with a systolic blood pressure of above 200. She denies any symptoms from this, denies dizziness, denies headache, denies shortness of breath. She was concerned with the finding and decided to bring herself into the ER. On admission she was found to have systolic blood pressure in the range of 200 was admitted to address the blood pressure. EKG revealed some borderline changes with left axis deviation. She was also incidentally found to have a urinary tract infection which she also has no symptoms from. She reports a very active exercise regimen, has a stationary bike which he uses daily, also has a walker which he does not use. Review of Systems Constitutional: Denies anorexia, Denies body ache(s), Denies chills, Denies daytime sleepiness, Denies excessive sweating, Denies fatigue, Denies fever(s), Denies headache(s), Denies increased appetite, Denies lack of energy, Denies malaise, Denies night sweats, Denies weakness, Denies weight gain, Denies weight loss, Denies other Ears, Nose, Mouth, and Throat: Denies abnormal hearing, Denies bleeding gums, Denies bad breath, Denies change in voice, Denies dental pain, Denies difficulty swallowing, Denies dizziness, Denies dry mouth, Denies ear discharge , Denies ear pain, Denies facial pain, Denies headache(s), Denies hearing loss, Denies hoarseness, Denies lip swelling, Denies nosebleed, Denies mouth lesions, Denies mouth pain, Denies nasal congestion, Denies nasal discharge, Denies nasal obstruction, Denies nasal trauma, Denies neck lump, Denies neck pain, Denies nose pain, Denies pain with swallowing, Denies poor balance, Denies post nasal drip, Denies ringing in the ears, Denies sinus pain, Denies sinus pressure , Denies sore throat, Denies throat swelling, Denies tongue swelling, Denies other Cardiovascular: Denies chest pain, Denies chest pain at rest, Denies chest pain with activity, Denies excessive sweating, Denies fainting, Denies fast heart rate, Denies foot swelling, Denies generalized swelling, Denies irregular heart rhythm, Denies leg pain with activity, Denies leg sores, Denies leg swelling, Denies lightheadedness, Denies radiating jaw, neck or arm pain, Denies rapid, pounding, or irregular heartbeat, Denies shortness of breath, Denies shortness of breath with activity, Denies shortness of breath when lying down, Denies shortness of breath causing sudden awakening, Denies slow heart rate, Denies other Respiratory: Denies change in phlegm color, Denies chest congestion, Denies cough, Denies coughing up blood, Denies excessive phlegm production, Denies pain on inspiration, Denies pain with cough, Denies shortness of breath, Denies shortness of breath with activity, Denies snoring, Denies stridor, Denies wheezing, Denies other Gastrointestinal: Denies abdominal pain, Denies belching, Denies black, tarry stools, Denies bloating, Denies bright, red blood in stools, Denies change in bowel habits, Denies constant urge to pass stool, Denies change in stools, Denies coffee ground vomit, Denies constipation, Denies cramping, Denies difficulty swallowing, Denies excessive passing of gas, Denies feeling full early, Denies heartburn, Denies incontinent of stools, Denies loose stools, Denies nausea, Denies pain with swallowing, Denies vomiting, Denies vomiting blood, Denies other Genitourinary: Denies abnormal periods, Denies abnormal vaginal bleeding, Denies absent period, Denies bleeding between periods, Denies blood in urine, Denies difficulty starting urination, Denies difficulty urinating, Denies dribbling after urination, Denies frequent nighttime urination, Denies genital itching, Denies genital lesions, Denies heavy periods, Denies hot flashes, Denies light periods, Denies nipple discharge, Denies painful intercourse, Denies painful periods, Denies painful urination, Denies pelvic pain, Denies prolapse symptoms, Denies sexual problems, Denies side pain, Denies urinary incontinence, Denies urinary urgency, Denies vaginal discharge, Denies vaginal dryness, Denies vaginal odor, Denies vaginal itching, Denies other Musculoskeletal: Denies abnormal walking, Denies back pain, Denies body aches, Denies decreased muscle mass, Denies deformity, Denies joint pain, Denies joint swelling, Denies limited joint movement, Denies loss of height, Denies muscle cramps, Denies muscle weakness, Denies neck pain, Denies numbness, Denies radiating pain into limb, Denies stiffness, Denies tingling, Denies other Neurologic: Denies abnormal hearing, Denies abnormal movements, Denies abnormal speech, Denies abnormal walking, Denies behavioral changes, Denies burning sensations, Denies confusion, Denies dizziness, Denies fainting, Denies frequent falls, Denies headache(s), Denies lack of coordination, Denies localized weakness, Denies loss of vision, Denies memory loss, Denies numbness, Denies other visual disturbances, Denies radiating pain, Denies restless legs, Denies convulsions, Denies seizure-like activity, Denies sensory deficit, Denies tingling, Denies tingling/numbness/burning sensations, Denies tremor(s), Denies unsteadiness, Denies weakness, Denies other PMFSH - History History Provided By: Patient - Medical History Medical History: Medical History (Last Updated 11/22/17 @ 18:28 by Elza Hooper RN) Hypertension - Surgical History Surgical History: Surgical History (Last Updated 11/22/17 @ 18:28 by Elza Hooper RN) No history of previous surgery - Tobacco History Second Hand Smoke Exposure: No Tobacco Use In Past 30 Days: No Smoking Status: Former smoker Tobacco Type: Cigarettes - Alcohol History How Often Do You Have a Drink Containing Alcohol: 4 or more times a week - Substance Use History Substance History: No History of Abuse - Travel History Recent Travel in the [facility] Within the Last 8 Weeks: No Recent Travel Out of the Country Within the Last 8 Weeks: No - Immunization History Tetanus Immunization: Unsure Hx Influenza Vaccine This Season: Yes Medications and Allergies Active Medications: Active Medications Hydrocodone Bitart/Acetaminophen ([place] 5/325) 1 tab PO Q4H PRN PRN Reason: PAIN 3-5 Last Admin: 11/23/17 11:04 Dose: 1 tab Hydrocodone Bitart/Acetaminophen ([place] 10/325) 1 tab PO Q4H PRN PRN Reason: PAIN 6-10 Al Hydroxide/Mg Hydroxide (Milk Of Magnesia Liq) 30 ml PO Q12H PRN PRN Reason: Mild Constipation Bisacodyl (Dulcolax Supp) 10 mg RECTAL DAILY PRN PRN Reason: SEVERE CONSITIPATION Clonidine HCl (Catapres) 0.1 mg PO Q6H PRN PRN Reason: HYPERTENSION Last Admin: 11/23/17 11:47 Dose: 0.1 mg Ceftriaxone Sodium 1,000 mg/ (Sodium Chloride) 100 mls @ 200 mls/hr IV.SIG Q24H KIMBERLY Lactulose (Lactulose Liq) 30 ml PO DAILY PRN PRN Reason: SEVERE CONSITIPATION Lisinopril (Prinivil) 10 mg PO DAILY KIMBERLY Last Admin: 11/23/17 13:06 Dose: 10 mg Metoclopramide HCl (Reglan Inj) 5 mg IV.PUSH Q6HR PRN; Protocol PRN Reason: NAUSEA OR VOMITING Last Admin: 11/23/17 11:08 Dose: 5 mg Non-Formulary Medication (Lisinopril) 40 mg PO DAILY [facility] Non-Formulary Medication (Atenolol) 25 mg PO DAILY [facility] Senna/Docusate Sodium (Hyun-Colace) 1 tab PO BID KIMBERLY Last Admin: 11/23/17 10:30 Dose: Not Given Sennosides (Senokot) 17.2 mg PO Q12H PRN PRN Reason: Moderate Constipation Temazepam (Restoril) 15 mg PO HS PRN PRN Reason: INSOMNIA Allergies Allergy/AdvReac Type Severity Reaction Status Date / Time No Known Allergies Allergy Verified 11/22/17 17:27 Home Medications Medication Instructions Recorded Confirmed Type atenolol DAILY 11/23/17 History lisinopril DAILY 11/23/17 History Exam Vital signs: Vital Signs 11/22/17 17:27 11/22/17 18:28 11/22/17 19:14 Temperature 97.7 F Pulse Rate 68 66 64 Respiratory Rate 16 16 18 Blood Pressure 195/100 H 173/93 H 165/87 H Pulse Oximetry 96 94 L 97 11/22/17 20:51 11/22/17 23:20 11/23/17 00:00 Temperature 97.9 F 97.8 F Pulse Rate 61 70 64 Respiratory Rate 16 24 23 Blood Pressure 166/80 H 150/78 H 179/81 H Pulse Oximetry 94 L 11/23/17 02:00 11/23/17 04:00 11/23/17 08:00 Temperature 98 F 97.2 F L Pulse Rate 66 62 88 Respiratory Rate 17 17 Blood Pressure 150/81 H Pulse Oximetry 11/23/17 12:00 11/23/17 13:45 11/23/17 16:00 Temperature 98.6 F Pulse Rate Respiratory Rate 19 Blood Pressure 176/84 H Pulse Oximetry Intake & Output 11/22/17 11/23/17 11/23/17 18:59 06:59 18:59 Intake Total 220 / 220 720 / 720 Output Total 250 / 250 500 / 500 Balance -30 / -30 220 / 220 Weight 52 kg 46.2 kg Intake: IV 100 / 100 Rocephin Inj 1,000 MG In NS Inj 100 / 100 100 ML @ 200 mls/hr IV.SIG ONCE ONE Rx#:[id number] Oral 120 / 120 720 / 720 Output: Urine 250 / 250 500 / 500 Other: Weight On Admission 46.2 kg Narrative: GENERAL: Alert and oriented 3 with some memory deficits with things like medication names and dosing, appears younger than stated age, fit SKIN: Warm and dry. HEAD: Atraumatic. Normocephalic. EYES: Pupils equal and round. No scleral icterus. No injection or drainage. ENT: No nasal bleeding or discharge. Mucous membranes pink and moist. NECK: Trachea midline. No JVD. CARDIOVASCULAR: Regular rate and rhythm. RESPIRATORY: No accessory muscle use. Clear to auscultation. Breath sounds equal bilaterally. GASTROINTESTINAL: Abdomen soft, non-tender, nondistended. Hepatic and splenic margins not palpable. MUSCULOSKELETAL: Extremities without clubbing, cyanosis, or edema. No obvious deformities. NEUROLOGICAL: Awake and alert. No obvious cranial nerve deficits. Motor grossly within normal limits. Five out of 5 muscle strength in the arms and legs. Normal speech. PSYCHIATRIC: Appropriate mood and affect; insight and judgment normal. Results - Labs CBC & Chem 7: 11/23/17 04:45 11/23/17 04:55 Labs: Laboratory Results - last 24 hr 11/22/17 11/22/17 11/22/17 18:45 19:00 19:00 CBC w Diff Auto diff final WBC 7.5 RBC 4.69 Hgb 13.7 Hct 41.2 MCV 87.9 MCH 29.2 MCHC 33.2 RDW 13.3 Plt Count 185 MPV 7.5 Neut % (Auto) 69.1 Lymph % (Auto) 21.6 [place] % (Auto) 7.2 Eos % (Auto) 1.6 Baso % (Auto) 0.5 Neut # (Auto) 5.3 Lymph # (Auto) 1.6 [place] # (Auto) 0.5 Eos # (Auto) 0.1 Baso # (Auto) 0.0 WBC Differential . Differential Comment . Sodium 135 L Potassium 3.8 Chloride 100 Carbon Dioxide 28.8 Anion Gap 6 BUN 20 H Creatinine 0.91 Estimated GFR 58 L Random Glucose 115 H Calcium 9.0 Magnesium 1.9 Total Bilirubin AST ALT Alkaline Phosphatase Troponin I Less than 0.02 L Total Protein Albumin Urine Color Yellow Urine Clarity Cloudy H Urine pH 5.5 Ur Specific [place] 1.020 Urine Protein Negative Urine Glucose (UA) Negative Urine Ketones 15 H Urine Occult Blood Small H Urine Nitrate Positive H Urine Bilirubin Negative Urine Urobilinogen 0.2 Ur Leukocyte Esterase Small H Urine RBC 4-15 H Urine WBC Innumerable H Urine WBC Clumps Moderate H Ur Squamous Epith Cells Greater than 10 H Ur Renal Epithelial Cell 1-5 H Amorphous Sediment Few H Urine Bacteria Many H Urine Mucus Few H Micro UA Comment Culture indicated 11/22/17 11/23/17 11/23/17 23:15 04:45 04:55 CBC w Diff Auto diff final WBC 5.4 RBC 4.51 Hgb 13.3 Hct 39.3 MCV 87.2 MCH 29.5 MCHC 33.8 RDW 13.2 Plt Count 163 MPV 7.4 Neut % (Auto) 65.7 Lymph % (Auto) 23.0 [place] % (Auto) 8.7 H Eos % (Auto) 2.1 Baso % (Auto) 0.5 Neut # (Auto) 3.5 Lymph # (Auto) 1.2 [place] # (Auto) 0.5 Eos # (Auto) 0.1 Baso # (Auto) 0.0 WBC Differential . Differential Comment . Sodium 137 Potassium 4.1 Chloride 103 Carbon Dioxide 29.0 Anion Gap 5 BUN 17 Creatinine 0.65 Estimated GFR 86 L Random Glucose 98 Calcium 8.0 L D Magnesium Total Bilirubin 0.6 AST 20 ALT 18 Alkaline Phosphatase 41 L Troponin I Less than 0.02 L Total Protein 6.4 Albumin 3.1 L Urine Color Urine Clarity Urine pH Ur Specific [place] Urine Protein Urine Glucose (UA) Urine Ketones Urine Occult Blood Urine Nitrate Urine Bilirubin Urine Urobilinogen Ur Leukocyte Esterase Urine RBC Urine WBC Urine WBC Clumps Ur Squamous Epith Cells Ur Renal Epithelial Cell Amorphous Sediment Urine Bacteria Urine Mucus Micro UA Comment 11/23/17 04:55 CBC w Diff WBC RBC Hgb Hct MCV MCH MCHC RDW Plt Count MPV Neut % (Auto) Lymph % (Auto) [place] % (Auto) Eos % (Auto) Baso % (Auto) Neut # (Auto) Lymph # (Auto) [place] # (Auto) Eos # (Auto) Baso # (Auto) WBC Differential Differential Comment Sodium Potassium Chloride Carbon Dioxide Anion Gap BUN Creatinine Estimated GFR Random Glucose Calcium Magnesium Total Bilirubin AST ALT Alkaline Phosphatase Troponin I Less than 0.02 L Total Protein Albumin Urine Color Urine Clarity Urine pH Ur Specific [place] Urine Protein Urine Glucose (UA) Urine Ketones Urine Occult Blood Urine Nitrate Urine Bilirubin Urine Urobilinogen Ur Leukocyte Esterase Urine RBC Urine WBC Urine WBC Clumps Ur Squamous Epith Cells Ur Renal Epithelial Cell Amorphous Sediment Urine Bacteria Urine Mucus Micro UA Comment Caprini VTE Risk Assessment Caprini VTE Risk Assessment: Moderate/High Risk (score >= 2) Caprini Risk Assessment Model: Point Value = 1 Point Value = 2 Point Value = 3 Point Value = 5 Age 41-60 Minor surgery BMI > 25 kg/m2 Swollen legs Varicose veins or History of unexplained or recurrent spontaneous Oral contraceptives or hormone replacement Sepsis (< 1 month) Serious lung disease, including pneumonia (< 1 month) Abnormal pulmonary function Acute myocardial infarction Congestive heart failure (< 1 month) History of inflammatory bowel disease Medical patient at bed rest Age 61-74 Arthroscopic surgery Major open surgery (> 45 min) Laparoscopic surgery (> 45 min) Malignancy Confined to bed (> 72 hours) Immobilizing plaster cast Central venous access Age >= 75 History of VTE Family history of VTE Factor V Leiden Prothrombin [id number] Lupus anticoagulant Anticardiolipin antibodies Elevated serum homocysteine Heparin-induced thrombocytopenia Other congenital or acquired thrombophilia Stroke (< 1 month) Elective arthroplasty Hip, pelvis, or leg fracture Acute spinal cord injury (< 1 month) Prophylaxis Regimen: Total Risk Factor Score Risk Level Prophylaxis Regimen 0-1 Low Early ambulation 2 Moderate Order ONE of the following: *Sequential Compression Device (SCD) *Heparin 5000 units SQ BID 3-4 Higher Order ONE of the following medications: *Heparin 5000 units SQ TID *Enoxaparin/Lovenox 40 mg SQ daily (WT < 150 kg, CrCl > 30 mL/min) *Enoxaparin/Lovenox 30 mg SQ daily (WT < 150 kg, CrCl > 10-29 mL/min) *Enoxaparin/Lovenox 30 mg SQ BID (WT < 150 kg, CrCl > 30 mL/min) AND/OR *Sequential Compression Device (SCD) 5 or more Highest Order ONE of the following medications: *Heparin 5000 units SQ TID (Preferred with Epidurals) *Enoxaparin/Lovenox 40 mg SQ daily (WT < 150 kg, CrCl > 30 mL/min) *Enoxaparin/Lovenox 30 mg SQ daily (WT < 150 kg, CrCl > 10-29 mL/min) *Enoxaparin/Lovenox 30 mg SQ BID (WT < 150 kg, CrCl > 30 mL/min) AND *Sequential Compression Device (SCD) Assessment and Plan - Plan Hypertensive urgency Patient reports that she took her blood pressure medicines yesterday but still had a systolic blood pressure greater than 200 She has thus far responded to a single dose of clonidine followed by lisinopril Dose of home medications was obtained she takes lisinopril 40 mg daily and atenolol 25 mg daily Atenolol will be resumed tonight, lisinopril will be resumed at home dose tomorrow Continue to follow on telemetry with regular blood pressure checks Urinary tract infection She is asymptomatic at this time, but this is likely because of her elevated blood pressure Rocephin started DVT prophylaxis SCDs, chemoprophylaxis held to 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
[2017-11-23] MEDS: Atenolol 25 MG Tablet PO SCH (17:17)
--- NOTE | 2017-11-23 18:26 | ECHRPT ---
Indication: HHD CONCLUSIONS The left ventricular systolic function is normal with an estimated ejection fraction in the range of 55-60%. [id number] mitral valve regurgitation. There is mild tricuspid valve regurgitation. There is estimated mild pulmonary hypertension present (range 40-50 mmHg). BP: / HR: Rhythm: MEASUREMENTS (Male / Female) Normal Values Technical Quality: 2D ECHO LV Diastolic Diameter PLAX 4.6 cm 4.2 - 5.9 / 3.9 - 5.3 cm LV Systolic Diameter PLAX 3.4 cm IVS Diastolic Thickness 1.0 cm 0.6 - 1.0 / 0.6 - 0.9 cm LVPW Diastolic Thickness 1.0 cm 0.6 - 1.0 / 0.6 - 0.9 cm LV Relative Wall Thickness 0.4 LVOT Diameter 1.7 cm LA Systolic Diameter LX 3.2 cm 3.0 - 4.0 / 2.7 - 3.8 cm LV Ejection Fraction MOD 4C 61.1 % LV Ejection Fraction 4C AL 66.2 % M-MODE Aortic Root Diameter MM 2.2 cm AV Cusp Separation MM 1.5 cm DOPPLER AV Peak Velocity 133.5 cm/s AV Peak Gradient 7.1 mmHg LVOT Peak Velocity 100.0 cm/s LVOT Peak Gradient 4.0 mmHg AV Area Cont Eq pk 1.7 cm MV Area PHT 3.9 cm Mitral E Point Velocity 107.0 cm/s Mitral A Point Velocity 84.9 cm/s Mitral E to A Ratio 1.3 LV E' Lateral Velocity 7.8 cm/s Mitral E to LV E' Lateral Ratio 13.7 LV E' Septal Velocity 4.8 cm/s Mitral E to LV E' Septal Ratio 22.4 TR Peak Velocity 297.0 cm/s TR Peak Gradient 35.3 mmHg Right Atrial Pressure 10.0 mmHg Pulmonary Artery Systolic Pressu 45.3 mmHg Right Ventricular Systolic Press 45.3 mmHg FINDINGS LEFT VENTRICLE The left ventricular systolic function is normal with an estimated ejection fraction in the range of 55-60%. Normal left ventricular size. Wall thickness is normal. No regional wall motion abnormalities are present. RIGHT VENTRICLE Normal right ventricular size and systolic function. LEFT ATRIUM The left atrial size is normal. RIGHT ATRIUM The right atrial size is normal. ATRIAL SEPTUM Normal atrial septal thickness without atrial level shunting by limited color doppler interrogation. AORTA The aortic root and proximal ascending aorta are normal in size on limited imaging. MITRAL VALVE Mild thickening of the mitral valve leaflets. Moderate mitral annular calcification. [id number] mitral valve regurgitation. No mitral valve stenosis. AORTIC VALVE Trileaflet aortic valve. No aortic valve stenosis or regurgitation. TRICUSPID VALVE Structurally normal tricuspid valve. There is mild tricuspid valve regurgitation. The estimated pulmonary arterial pressure is 45.3 mmHg. There is estimated mild pulmonary hypertension present (range 40-50 mmHg). PULMONARY VALVE Trivial pulmonary valve regurgitation. VESSELS The inferior vena cava is normal in size. PERICARDIUM No pericardial effusion. Felton Adhikari DO (Electronically Signed) Final Date:23 November 2017 18:25
--- NOTE | 2017-11-23 19:03 | ECG ---
Date Performed: 11/23/2017 Time Performed: 06:05:37 PTAGE: 87 years EKG: Sinus rhythm POSSIBLE LEFT ATRIAL ENLARGEMENT BORDERLINE LEFT AXIS DEVIATION NONSPECIFIC ST & T-WAVE ABNORMALITY BORDERLINE ECG Since PREVIOUS TRACING , no significant change noted PREVIOUS TRACIN11/23/2017 00.21 DOCTOR: Elsa Irizarry Interpretating Date/Time 11/23/2017 19:02:25
--- NOTE | 2017-11-23 19:12 | ECG ---
Date Performed: 11/23/2017 Time Performed: 00:21:07 PTAGE: 87 years EKG: Sinus rhythm NONSPECIFIC ST & T-WAVE ABNORMALITY BORDERLINE ECG Since PREVIOUS TRACING , no significant change noted PREVIOUS TRACIN11/22/2017 18.46 DOCTOR: Elsa Irizarry Interpretating Date/Time 11/23/2017 19:11:17
[2017-11-23] MEDS: Sod Chloride 0.9% Inj 1,000 ML IV.CONT SCH (22:10)
[2017-11-24] MEDS ORDERED: Lisinopril 20 MG Tablet PO SCH (09:00)
[2017-11-24] MEDS: Senna/Docusate Sodium 8.6/50 MG Tablet PO SCH (10:26)
[2017-11-24] MEDS: Atenolol 25 MG Tablet PO SCH (10:26)
--- NOTE | 2017-11-24 13:48 | P.DS ---
Date of admission: 11/22/17 20:00 Primary care physician: Eric Caba MD Brief History from admission: This is an 87-year-old female in good health for her age who has a past medical history of hypertension. On routine home blood pressure check yesterday evening her machine registered with a systolic blood pressure of above 200. She denies any symptoms from this, denies dizziness, denies headache, denies shortness of breath. She was concerned with the finding and decided to bring herself into the ER. On admission she was found to have systolic blood pressure in the range of 200 was admitted to address the blood pressure. EKG revealed some borderline changes with left axis deviation. She was also incidentally found to have a urinary tract infection which she also has no symptoms from. She reports a very active exercise regimen, has a stationary bike which he uses daily, also has a walker which he does not use. DS: Medications - Discharge Medications Prescriptions: clonidine HCl 0.1 mg PO BID PRN #20 tab PRN Reason: Hypertension nitrofurantoin monohyd/m-cryst [Macrobid] 100 mg PO BID 7 Days #14 cap DS: Summary Hospital Course: 87-year-old female admitted for hypertensive urgency and urinary tract infection. She was restarted on her lisinopril and atenolol yesterday. Following morning doses her blood pressure has been in the 150 range. She remains asymptomatic from her urinary tract infection. With her blood pressure controlled on home dose medications she is appropriate for discharge. I have provided clonidine as a backup plan of her pressure rises again. As her urinary tract infection continues to clear I would expect the blood pressures to normalize as they have been doing since yesterday. I recommended that she follow-up with her primary care provider to recheck her urine in approximately 1 week. - Time Spent with Patient Total time spent providing and/or coordinating discharge services: - Quality: VTE Deep Vein Thrombosis/Pulmonary Embolism Present on Admission: No Exam Vital signs: Vital Signs 11/23/17 16:00 11/23/17 20:00 11/24/17 00:00 Temperature 98.6 F 97.8 F 96.8 F L Pulse Rate 62 58 L Respiratory Rate 21 16 Blood Pressure 118/67 139/70 Pulse Oximetry 94 L 96 11/24/17 00:22 11/24/17 04:00 11/24/17 05:58 Temperature 96.6 F L 97.4 F L Pulse Rate 62 67 67 Respiratory Rate 16 18 Blood Pressure 174/83 H 198/94 H Pulse Oximetry 92 L 93 L 11/24/17 06:00 11/24/17 08:00 11/24/17 12:00 Temperature 97.4 F L 98.4 F 97.4 F L Pulse Rate 67 74 64 Respiratory Rate 20 20 20 Blood Pressure 198/94 H 166/78 H 170/77 H Pulse Oximetry 95 97 Intake & Output 11/23/17 11/24/17 11/24/17 18:59 06:59 18:59 Intake Total 720 / 720 300 / 300 240 / 240 Output Total 750 / 750 500 / 500 Balance -30 / -30 300 / 300 -260 / -260 Weight 46.2 kg Intake: IV 100 / 100 NS Inj 1,000 ML @ 100 mls/hr IV 0 / 0 .CONT .Q10H KIMBERLY Rx#:[id number] Rocephin Inj 1,000 MG In NS Inj 100 / 100 100 ML @ 200 mls/hr IV.SIG Q24H KIMBERLY Rx#:[id number] Oral 720 / 720 200 / 200 240 / 240 Output: Urine 750 / 750 500 / 500 Other: # Voids 2 1 Date of Last Bowel Movement 11/21/17 # Bowel Movements 0 Results Procedures completed during hospitalization: None Discharge Plan - Discharge Disposition Patient Disposition: 01 Discharge Home - Discharge Condition Condition: Fair - Discharge Order Discharge Orders: Discharge Order (Routine); Ordered 11/24/17 Ordered By: John Phillips - Physicians Team Primary Care Provider: Eric Caba Attending Provider: John Phillips
== END 2017-11-24 13:22 | disposition home or self-care (01) ==
LOC: PHEDA 17:20 → PHED 17:20 → PH3 17:20 → PHICU 23:00 → PH3 11-23 21:29
PROVIDERS: ADMIT Family Medicine; ATTEND Family Medicine
DX: Z87.891 Personal history of nicotine dependence; I10 Essential (primary) hypertension; Z79.899 Other long term (current) drug therapy; I08.1 Rheumatic disorders of both mitral and tricuspid valves; I16.0 Hypertensive urgency; I27.20 Pulmonary hypertension, unspecified; N39.0 Urinary tract infection, site not specified; H35.30 Unspecified macular degeneration